=== PATIENT | female | born 1960 | race American Indian/Alaskan Native ===

== ENCOUNTER 2017-10-08 12:28 | Emergency (ER) | payer MEDICARE ==
[2017-10-08 13:31] LABS: Basophils % (Auto) 0.7 % (0.0-1.8); Eosinophils # (Auto) 0.2 K/mm3 (0.0-0.4); Eosinophils % (Auto) 2.5 % (0.0-4.3); Hematocrit 33.1 % (30.3-42.9); Hemoglobin 10.6 gm/dl (10.1-14.3); Lymphocytes # (Auto) 1.9 K/mm3 (1.2-5.4); Lymphocytes % (Auto) 31.2 % (13.4-35.0); Mean Corpuscular HGB Conc 32 % (30-34); Mean Corpuscular Hemoglobin 28 pg (28-32); Mean Corpuscular Volume 86 fl (79-97); Monocytes # (Auto) 0.4 K/mm3 (0.0-0.8); Monocytes % (Auto) 5.9 % (0.0-7.3); Platelet Count 243 K/mm3 (140-440); Red Blood Count 3.87 M/mm3 (3.65-5.03); Red Cell Distribution Width 14.4 % (13.2-15.2)
[2017-10-08 14:11] LABS: BUN/Creatinine Ratio 10; Blood Urea Nitrogen 8 mg/dL (7-17); Calcium 9.3 mg/dL (8.4-10.2); Hemolysis Index 38
--- NOTE | 2017-10-08 14:16 | Emergency Department Report ---
ED Fall HPI - General Chief Complaint: Fall Stated Complaint: FALL Time Seen by Provider: 10/08/17 14:00 Source: patient, EMS Mode of arrival: Stretcher - History of Present Illness Initial Comments: The patient was sleeping in fact snoring while I first encountered her. She is transferred from [facility] where she is an inpatient after a fall. He has history of bipolar disorder. She states that she hit her head, her neck and mid back and lower back is hurting. However, this is not impeding her to sleep in the emergency department. She denies any neurological change. She doesn't believe she has a bump on her head nor that she has had a loss of consciousness. She is not nauseated. The fall was mechanical without any antecedent symptoms. MD Complaint: fall -: Gradual Fall From: standing When Fall Occurred: 1 hour [employer] Fall Witnessed: yes, by living facility s ([facility] ) Place Fall Occurred: other ([facility]) Loss of Consciousness: none Prolonged Down Time?: no Symptoms Prior to Fall: none Location: head, neck, back Severity: mild Quality: dull Context: tripped/slipped Associated Symptoms: denies (except as above indicated) - Related Data Home Medications Medication Instructions Recorded Confirmed Last Taken Lisinopril 10 mg PO QDAY 08/03/14 11/17/14 Unknown carBAMazepine [TEGretol] 200 mg PO BID 08/03/14 11/17/14 Unknown glipiZIDE [glipiZIDE XL] 10 mg PO QDAY 08/03/14 11/17/14 Unknown metFORMIN [Glucophage] 1,000 mg PO DAILY 08/03/14 11/17/14 Unknown risperiDONE [RisperiDONE] 1 mg PO QAM 08/03/14 11/17/14 Unknown risperiDONE [RisperiDONE] 3 mg PO QHS 08/03/14 11/17/14 Unknown Allergies Allergy/AdvReac Type Severity Reaction Status Date / Time No Known Allergies Allergy Verified 11/17/14 10:26 ED Review of Systems ROS: Stated complaint: FALL Other details as noted in HPI Constitutional: denies: chills, fever Eyes: denies: eye pain, eye discharge, vision change ENT: denies: ear pain, throat pain Respiratory: denies: cough, shortness of breath, wheezing Cardiovascular: denies: chest pain, palpitations Endocrine: no symptoms reported Gastrointestinal: denies: abdominal pain, nausea, diarrhea Genitourinary: denies: urgency, dysuria, discharge Musculoskeletal: as per HPI, back pain. denies: joint swelling, arthralgia Skin: denies: rash, lesions Neurological: denies: headache, weakness, paresthesias Psychiatric: denies: anxiety, depression Hematological/Lymphatic: denies: easy bleeding, easy bruising ED Past Medical Hx - Past Medical History Previous Medical History?: Yes Hx Hypertension: Yes Hx Diabetes: Yes Hx Psychiatric Treatment: Yes (Bipolar) - Surgical History Past Surgical History?: Yes Additional Surgical History: Left eye, hysterectomy - Social History Smoking Status: Never Smoker Substance Use Type: Alcohol - Medications Home Medications: Home Medications Medication Instructions Recorded Confirmed Last Taken Type Lisinopril 10 mg PO QDAY 08/03/14 11/17/14 Unknown History carBAMazepine [TEGretol] 200 mg PO BID 08/03/14 11/17/14 Unknown History glipiZIDE [glipiZIDE XL] 10 mg PO QDAY 08/03/14 11/17/14 Unknown History metFORMIN [Glucophage] 1,000 mg PO DAILY 08/03/14 11/17/14 Unknown History risperiDONE [RisperiDONE] 1 mg PO QAM 08/03/14 11/17/14 Unknown History risperiDONE [RisperiDONE] 3 mg PO QHS 08/03/14 11/17/14 Unknown History ED Physical Exam - General Limitations: No Limitations General appearance: alert, in no apparent distress - Head Head exam: Present: atraumatic, normocephalic - Eye Eye exam: Present: normal appearance, PERRL, EOMI. Absent: scleral icterus - ENT ENT exam: Present: mucous membranes moist - Neck Neck exam: Present: normal inspection, tenderness (mild paravertebral). Absent : meningismus - Respiratory Respiratory exam: Present: normal lung sounds bilaterally. Absent: respiratory distress - Cardiovascular Cardiovascular Exam: Present: regular rate, normal rhythm. Absent: systolic murmur, diastolic murmur, rubs, gallop - GI/Abdominal GI/Abdominal exam: Present: soft, normal bowel sounds. Absent: distended, tenderness, guarding, rebound, rigid - Extremities Exam Extremities exam: Present: normal inspection. Absent: full ROM, tenderness - Back Exam Back exam: Present: normal inspection, paraspinal tenderness (diffuse). Absent : CVA tenderness (R), CVA tenderness (L), muscle spasm, vertebral tenderness - Neurological Exam Neurological exam: Present: alert, oriented X3, CN II-XII intact. Absent: motor sensory deficit - Psychiatric Psychiatric exam: Present: normal affect, normal mood - Skin Skin exam: Present: warm, dry, intact, normal color. Absent: rash ED Course Vital Signs 10/08/17 10/08/17 10/08/17 13:27 15:07 16:24 Pulse Rate 104 H 98 H Respiratory 20 16 Rate Blood Pressure 113/75 [Left] O2 Sat by Pulse 98 Oximetry ED Medical Decision Making - Lab Data Result diagrams: 10/08/17 13:20 10/08/17 14:00 Laboratory Results - last 24 hr 10/08/17 10/08/17 10/08/17 13:20 13:20 14:00 WBC 6.0 RBC 3.87 Hgb 10.6 Hct 33.1 MCV 86 MCH 28 MCHC 32 RDW 14.4 Plt Count 243 Lymph % (Auto) 31.2 [place] % (Auto) 5.9 Eos % (Auto) 2.5 Baso % (Auto) 0.7 Lymph # 1.9 [place] # 0.4 Eos # 0.2 Baso # 0.0 Seg Neutrophils % 59.7 Seg Neutrophils # 3.6 Sodium 138 Potassium 4.2 Chloride 99.1 Carbon Dioxide 27 Anion Gap 16 BUN 8 Creatinine 0.8 Estimated GFR > 60 BUN/Creatinine Ratio 10 Glucose 92 Calcium 9.3 [place] 0.8 - EKG Data -: EKG Interpreted by Ne EKG shows normal: sinus rhythm Rate: normal - EKG Data Interpretation: no acute changes - Radiology Data Radiology results: report reviewed (NAF) Critical care attestation.: If time is entered above; I have spent that time in minutes in the direct care of this critically ill patient, excluding procedure time. ED Disposition Clinical Impression: Minor head injury Qualifiers: Encounter type: initial encounter Qualified Code(s): S00.90XA - Unspecified superficial injury of unspecified part of head, initial encounter Cervical strain Qualifiers: Encounter type: initial encounter Qualified Code(s): S16.1XXA - Strain of muscle, fascia and tendon at neck level, initial encounter Low back strain Qualifiers: Encounter type: initial encounter Qualified Code(s): S39.012A - Strain of muscle, fascia and tendon of lower back, initial encounter Bipolar disorder Qualifiers: Active/Remission status: currently active Current bipolar episode type: mixed Current episode severity: mild Qualified Code(s): F31.61 - Bipolar disorder, current episode mixed, mild Disposition: DC-01 TO HOME OR SELFCARE Is pt being admited?: No Does the pt Need Aspirin: No Condition: Stable Instructions: Muscle Strain (ED), Minor Head Injury (ED) Additional Instructions: Further care [facility]. Return any acute change or problem. Referrals: PRIMARY CARE, [Primary Care Provider] - 3-5 Days Time of Disposition: 16:36
--- NOTE | 2017-10-08 15:24 | Cat Scan Report ---
FINAL REPORT EXAM: CT HEAD/BRAIN WO CON HISTORY: head trauma TECHNIQUE: CT head without contrast PRIORS: None. FINDINGS: No acute intra-axial or extra-axial hemorrhage is identified. There is no evidence of midline shift or mass effect. The ventricles and sulci are within normal limits. Light-white matter differentiation is intact. No acute parenchymal abnormalities seen. Bony calvarium is grossly intact. Visualized portions of the mastoids and paranasal sinuses are unremarkable. IMPRESSION: Negative CT head
--- NOTE | 2017-10-08 15:31 | XRay Report ---
FINAL REPORT EXAM: XR SPINE LUMBOSACRAL 2-3V HISTORY: fall lower back pain TECHNIQUE: Lumbar spine 3 views PRIORS: None. FINDINGS: Vertebral bodies demonstrate normal height and alignment. There is some spondylosis with vertebral body osteophytes noted L5-S1 the disc spaces are within normal limits. There is no evidence of spondylolisthesis. Transverse and spinous processes are intact SI joints are unremarkable. IMPRESSION: Spondylosis with degenerative changes at L5-S1
--- NOTE | 2017-10-08 15:32 | XRay Report ---
FINAL REPORT EXAM: XR SPINE CERVICAL 2-3V HISTORY: fall neck pain TECHNIQUE: Cervical spine five views PRIORS: None. FINDINGS: Vertebral bodies demonstrate normal height and alignment. There is disc space narrowing with marginal vertebral body osteophytes C4-C5, C5-C6 and C6-C7. The facet joints demonstrate normal alignment. The spinous processes are intact. Craniocervical junction is unremarkable. C1 and C2 are intact. IMPRESSION: Spondylosis and degenerative disc disease from C4-C5 through C6-C7
--- NOTE | 2017-10-08 15:35 | XRay Report ---
FINAL REPORT EXAM: XR SPINE THORACIC 2V HISTORY: fall back pain TECHNIQUE: Two views thoracic spine PRIORS: None. FINDINGS: The vertebral bodies demonstrate normal height and alignment. The disk spaces are within normal limits. The posterior elements appear intact. Perivertebral soft tissues are unremarkable. IMPRESSION: Negative thoracic spine series
[2017-10-08 16:25] VITALS: BP 113/75
[2017-10-08] MEDS ORDERED: MOTRIN PO ONE (16:40)
== END 2017-10-08 16:57 | disposition home or self-care (01) ==
LOC: ED 12:28
DX: S16.1XXA Strain of muscle, fascia and tendon at neck level, initial encounter (principal); S39.012A Strain of muscle, fascia and tendon of lower back, initial encounter; S09.90XA Unspecified injury of head, initial encounter; I10 Essential (primary) hypertension; E11.9 Type 2 diabetes mellitus without complications; W18.30XA Fall on same level, unspecified, initial encounter; Y93.89 Activity, other specified; Y92.89 Other specified places as the place of occurrence of the external cause; Y99.8 Other external cause status
CPT/HCPCS: 36415; 70450; 72040; 72070; 72100; 80048; 80178; 85025; 93005; 93010